=== PATIENT | female | born 1960 | race Caucasian/White ===

== ENCOUNTER 2020-05-31 10:34 | Emergency (ER) | payer MEDICARE, MEDICAID ==
[2020-05-31] MEDS ORDERED: Ibuprofen 800 MG TAB ONE (11:37)
== END 2020-05-31 11:43 | disposition home or self-care (01) ==
LOC: ERS 10:34
DX: M54.42 Lumbago with sciatica, left side (principal); I10 Essential (primary) hypertension; E03.9 Hypothyroidism, unspecified; F17.210 Nicotine dependence, cigarettes, uncomplicated; J44.9 Chronic obstructive pulmonary disease, unspecified
CPT/HCPCS: 99283